=== PATIENT | female | born 1965 | race Caucasian/White ===

== ENCOUNTER → 2016-03-23 | Outpatient (CLI) | payer OTHER ==
[~2016-03-23] MED LIST: CITA10TA4 PO; CLR10 PO; CLX20 PO; LORA-741 PO; PRED20TA PO
== END | disposition home or self-care (01) ==
LOC: C.RDSM 15:58
PROVIDERS: ATTEND Physical Medicine & Rehabilitation Sports Medicine
DX: M79.671 Pain in right foot (principal)

== ENCOUNTER → 2016-06-17 | Outpatient (CLI) | payer OTHER ==
--- NOTE | 2016-06-17 12:50 | DIAGNOSTIC IMAGING REPORT ---
Study: Fusion CT of the sinuses. HISTORY: Congestion. Infection. FINDINGS: Mild mucosal thickening of the ethmoid sinuses. All remaining sinuses are clear. Ostiomeatal units are patent bilaterally. Mild hypertrophic changes of the nasal turbinates. Frontal sinuses are clear. No bony destructive process. IMPRESSION: 1. Minimal mucosal thickening of the ethmoid sinuses. 2. All remaining sinuses are clear. 3. Moderate hypertrophic changes of the nasal turbinates bilaterally creating A mild degree of nasal occlusive change. Electronically signed by: Edmundo Bernstein M.D. 06/17/2016 12:49 PM Dictated Date/Time: 06/17/2016 12:46 PM
== END | disposition home or self-care (01) ==
LOC: C.CTS 12:16
DX: J34.2 Deviated nasal septum (principal); J32.9 Chronic sinusitis, unspecified; J30.9 Allergic rhinitis, unspecified; J34.3 Hypertrophy of nasal turbinates

== ENCOUNTER 2016-08-18 07:46 | Emergency (ER) | payer OTHER ==
[~2016-08-18] VITALS: Ht 160 cm; Wt 71.6 kg
[~2016-08-18 07:46] MED LIST changes: -CITA10TA4 PO; -LORA-741 PO; -PRED20TA PO
[2016-08-18 07:49] VITALS: BP 152/89; PULSE 87; TEMP 36.8; O2SAT 93; Ht 160 cm; Wt 71.6 kg
[2016-08-18] MEDS ORDERED: PRED20TA PO (08:10)
[2016-08-18] MEDS ORDERED: LORA-741 PO (08:11)
[2016-08-18] MEDS ORDERED: CITA10TA4 PO (08:11)
--- NOTE | 2016-08-18 08:11 | EMERGENCY ROOM VISIT NOTE ---
History First contact with patient: 07:53 Chief Complaint: RASH Stated Complaint: POISON SATISH ON FACE History of Present Illness The patient is a 51 year old female who presents to the Emergency Room via private vehicle with complaints of "poison satish on face". The patient states that this past Wednesday, she was playing with her 1-year-old grandson in the grass. She believes that she may have come in contact with poison satish at this time. She states that shortly thereafter she noticed a rash on her left leg, her right arm and then her face. She notes that it is not itchy or painful. It is slightly raised, and red in nature. There has been no fevers or chills. She denies any trouble breathing. She also notes a laundry detergent over the past 2 months. She denies any underlying blood dyscrasias. She denies any bleeding gums. Review of Systems A complete 6-point Review of Systems was discussed with the patient, with pertinent positives and negatives listed in the History of Present Illness. All remaining Review of Systems questions can be considered negative unless otherwise specified. Past Medical/Surgical History Abnormal brain MRI, tonsillectomy, cholecystectomy, tubal ligation. Family History Hypertension, seizures Social History Smoking Status: Current Every Day Smoker Occupation Status: employed Social History: Patient is currently employed. Current/Historical Medications Scheduled Citalopram Hydrobromide (Citalopram Hydrobromide), 10 MG PO DAILY Loratadine (Claritin), 10 MG PO DAILY Prednisone (Prednisone), 0 PO DAILY Scheduled PRN Lorazepam (Ativan), 0.5 MG PO for Anxiety Allergies Coded Allergies: Codeine (Verified Allergy, Intermediate, ITCHY, RASH, 08/18/16) Sulfamethoxazole w/Trimethoprim (Verified Allergy, Mild, RASH, 08/18/16) Physical Exam Vital Signs Date Time Temp Pulse Resp B/P (MAP) Pulse Ox O2 Delivery O2 Flow Rate FiO2 08/18/16 07:49 36.8 87 18 152/89 93 Room Air Physical Exam VITAL SIGNS - Vital signs and nursing notes were reviewed. Patient is afebrile , hypertensive at 152/89, non-tachycardic and is saturating on room air 93%. GENERAL -51-year-old female appearing her stated age who is in no acute distress. Communicates well with provider and answers questions appropriately. SKIN - Without rashes. HEAD - NC/AT. EYES - PERRL with EOMI bilaterally. Sclera anicteric. Palpebral conjunctiva pink and moist with no injection noted. EARS - No deformities of external structures noted on gross examination bilaterally. No pain elicited with palpation of the tragus bilaterally. External auditory canals without discharge or otorrhea. Tympanic membranes pearly smith without retraction or bulging. No fluid or purulent material visualized behind the TM. Handle of malleus, umbo, cone of light, pars tensa/ flaccid all easily visualized. NOSE - Midline and without cyanosis. No epistaxis or purulent drainage noted. Septum midline without deviation or septal hematoma noted. MOUTH/OROPHARYNX - Without perioral cyanosis. Buccal mucosa pink and moist and without leukoplakia. Tongue midline with equal elevation of palate bilaterally. No tonsillar hypertrophy, erythema, or exudates noted. The airway is patent. LUNGS - Chest wall symmetric without accessory muscle use, intercostals retractions, or central cyanosis. Normal vesicular breath sounds CTA B/L. No wheezes, rales, or rhonchi appreciated. CARDIAC - RRR with S1/S2. No murmur, rubs, or gallops appreciated. Medical Decision & Procedures Medical Decision Patient was seen and evaluated as above. After obtaining a thorough history and physical examination, it was evident the patient was likely experiencing a contact dermatitis. There is no evidence of infection. She is afebrile. We discussed potential antibiotics, however she this time would like to begin with the initial plan of steroids for the contact dermatitis. I do believe this is reasonable, her history is consistent with that of likely contact dermatitis. She was informed of follow-up regarding her hypertension and pulse ox 93%. She will be sent home with a prescription for prednisone, and encouraged to use Benadryl. She'll be given a work excuse for today. She was educated upon management today's findings. She is to return here if worsening, and also to follow-up with her family doctor. She was educated on worrisome symptoms in which to return, had questions prior to discharge, and was discharged home in good condition. In evaluation treatment this patient the following differential diagnoses entertained: Contact dermatitis, poison satish, cellulitis, petechial rash, meningitis, among others. Impression Primary Impression: Contact dermatitis Departure Information Dispostion Home / Self-Care Condition GOOD Prescriptions Prednisone (Prednisone) 20 Mg Tab 0 PO DAILY, #18 TAB 3 DAILY FOR 3 DAYS, THEN 2 DAILY FOR 3 DAYS, THEN 1 DAILY FOR 3 DAYS. Prov: Henry Graham PA-C 08/18/16 Referrals Barbra Pena PA-C (PCP) Patient Instructions My [facility] Additional Instructions You have been treated in the Emergency Department for an Allergic Reaction/ contact dermatitis. You have been treated and monitored in the Emergency Department appropriately. You should take Benadryl (diphenhydramine) 25 mg orally every 6 hours for the next 5-7 days. This medication is [id number] and you will NOT need a prescription to purchase this at your local pharmacy. You should continue taking the Benadryl for the COMPLETION of the 5-7 days. This is to prevent a rebound allergic reaction in the event that allergens are still present in your system. You have been prescribed Prednisone to be taken orally. This is an anti- inflammatory medicine to be used to help minimize your symptoms. You should take the COMPLETE course of the medication. As with every Emergency Department visit, you should follow-up with your primary care provider in 2-3 days for reevaluation. Please follow up for the blood pressure and pulse ox as we discussed. Thank you. Return to the Emergency Department if your current symptoms worsen despite treatment course outlined above, or if you develop any of the following symptoms : wheezing, tongue or face swelling, tightness in your throat, shortness of breath, or fainting. Please return to the emergency department with any new/concerning symptoms.
== END 2016-08-18 08:21 | disposition home or self-care (01) ==
LOC: C.EDB 07:47 → C.EDA 08:21
DX: L25.9 Unspecified contact dermatitis, unspecified cause (principal); Z90.49 Acquired absence of other specified parts of digestive tract; Z98.51 Tubal ligation status; Z82.49 Family history of ischemic heart disease and other diseases of the circulatory system; Z82.0 Family history of epilepsy and other diseases of the nervous system; F17.210 Nicotine dependence, cigarettes, uncomplicated; Z79.899 Other long term (current) drug therapy